=== PATIENT | female | born 1975 | race Caucasian/White ===

== ENCOUNTER 2019-02-07 18:13 | Emergency (ER) | payer OTHER ==
[~2019-02-07] VITALS: Ht 167.6 cm; Wt 76.7 kg
[2019-02-07] MEDS ORDERED: PRENATAL TABLE1 EAC1 (18:28)
[2019-02-07] MEDS ORDERED: MEDROLPACK (18:29)
[2019-02-07] MEDS ORDERED: PLAQUENIL (18:29)
== END 2019-02-07 21:09 | disposition home or self-care (01) ==
LOC: ER 18:13
DX: O20.0 Threatened abortion (principal)

== ENCOUNTER 2019-05-25 21:52 | Outpatient (CLI) | payer OTHER ==
[~2019-05-25 21:52] MED LIST: MEDROLPACK; PLAQUENIL; PRENATAL TABLE1 EAC1
== END 2019-05-26 08:23 | disposition home or self-care (01) ==
LOC: OBS/DEL 21:52
DX: O26.892 Other specified pregnancy related conditions, second trimester (principal); Z04.1 Encounter for examination and observation following transport accident; V49.88XA Car occupant (driver) (passenger) injured in other specified transport accidents, initial encounter; Y93.89 Activity, other specified; Y92.488 Other paved roadways as the place of occurrence of the external cause; Y99.8 Other external cause status

== ENCOUNTER 2019-07-27 09:21 | Outpatient (CLI) | payer OTHER | END 2019-07-27 10:29 | disposition home or self-care (01) | LOC: NST 09:21 | DX: Z34.83 Encounter for supervision of other normal pregnancy, third trimester (principal) ==

== ENCOUNTER 2019-07-27 10:11 | Inpatient (IN) | payer OTHER ==
[~2019-07-27] VITALS: Ht 167.6 cm; Wt 84.4 kg
== END 2019-08-26 12:42 | disposition home or self-care (01) | DRG 807 ==
LOC: OB/GYN 08-23 11:45 → LDR 08-24 02:49 → OB/GYN 08-24 04:14 → LDR 08-24 08:03 → OB/GYN 08-24 19:50
PROVIDERS: ADMIT Obstetrics & Gynecology
PROC: 10E0XZZ Delivery of Products of Conception, External Approach (ICD-10-PCS; principal; 2019-08-24)
PROC: 10907ZC Drainage of Amniotic Fluid, Therapeutic from Products of Conception, Via Natural or Artificial Opening (ICD-10-PCS; 2019-08-24)
PROC: 0W8NXZZ Division of Female Perineum, External Approach (ICD-10-PCS; 2019-08-24)
PROC: 3E033VJ Introduction of Other Hormone into Peripheral Vein, Percutaneous Approach (ICD-10-PCS; 2019-08-24)
PROC: 4A1HXCZ Monitoring of Products of Conception, Cardiac Rate, External Approach (ICD-10-PCS; 2019-08-24)
DX: O80 Encounter for full-term uncomplicated delivery (principal); Z37.0 Single live birth; Z3A.40 40 weeks gestation of pregnancy

== ENCOUNTER 2019-08-17 07:21 | Outpatient (CLI) | payer OTHER | END 2019-08-17 07:54 | disposition home or self-care (01) | LOC: NST 07:21 | DX: Z34.83 Encounter for supervision of other normal pregnancy, third trimester (principal) ==

== ENCOUNTER 2019-08-22 07:26 | Outpatient (CLI) | payer OTHER | END 2019-08-22 07:58 | disposition home or self-care (01) | LOC: NST 07:26 | DX: Z34.83 Encounter for supervision of other normal pregnancy, third trimester (principal) ==

== ENCOUNTER 2019-08-23 02:32 | Outpatient (CLI) | payer OTHER | END 2019-08-23 08:43 | disposition home or self-care (01) | LOC: OBS/DEL 02:32 | DX: O26.893 Other specified pregnancy related conditions, third trimester (principal); R10.2 Pelvic and perineal pain ==